=== PATIENT | male | born 1955 | race Caucasian/White ===

== ENCOUNTER 2016-11-11 09:15 | Emergency (ER) | payer MEDICARE ==
[~2016-11-11] VITALS: Ht 182.9 cm; Wt 111.2 kg
[~2016-11-11 09:15] MED LIST: ADULT LOW DOSE81 M1 PO; BP MED; CENTRUM SILVER1 EACH PO; CIPRO500 MG PO; FIBER CHOICE1 TABLET PO; LISINOPRIL20 MG PO; XALATAN2.5 ML BOTH EYES
[2016-11-11 10:03] LABS: HEMATOCRIT 34.4 % (38.0-50.0); MCH 32.2 PG (29.0-34.0); MCHC 34.6 G/DL (30.0-36.0); MCV 93.2 FL (86-99); MEAN PLAT.VOLUME 10.1 uM^3 (9.0-12.4); PLATELET COUNT 274 K/uL (156-360); RBC DIS.WIDTH-CV 13.2 % (11.8-14.6); RBC DIS.WIDTH-SD 44.6 % (39-53); RED BLOOD COUNT 3.69 M/uL (4.00-5.50); WHITE BLOOD COUNT 7.3 K/uL (4.1-10.2)
[2016-11-11 10:50] LABS: CHLORIDE 106 mEq/L (99-109); POTASSIUM 4.2 mEq/L (3.7-5.4); SODIUM 139 mEq/L (136-147)
[2016-11-11 10:51] LABS: GLUCOSE 101 mg/dL (70-99)
[2016-11-11 10:53] LABS: ANION GAP 10 MEQ/L (2-14)
[2016-11-11 10:55] LABS: GFR ESTIMATE (CALCULATED) > 59 mL/min/
[2016-11-11 10:56] LABS: UREA NITROGEN (BUN) 12 mg/dL (9-23)
[2016-11-11 10:58] LABS: URIC ACID 7.3 mg/dL (3.1-9.2)
[2016-11-11] MEDS ORDERED: PEPCID20 MG PO (11:57)
[2016-11-11] MEDS ORDERED: BENADRYL50 MG PO (11:57)
[2016-11-11] MEDS ORDERED: COLCHICINE0.6 M1 PO (11:57)
[2016-11-11] MEDS ORDERED: PREDNISONE20 MG PO (11:57)
[2016-11-11 15:55] VITALS: BP 137/97
== END 2016-11-11 16:06 | disposition home or self-care (01) ==
LOC: EME 09:15
PROVIDERS: Nurse Practitioner Family
DX: T78.3XXA Angioneurotic edema, initial encounter (principal); M10.9 Gout, unspecified; I10 Essential (primary) hypertension; Z90.49 Acquired absence of other specified parts of digestive tract
CPT/HCPCS: 80048; 80053; 84550; 85027; 99281; 99285; J1200; J2930; J7030; S0028

== ENCOUNTER 2016-11-20 23:49 | Emergency (ER) | payer MEDICARE ==
[~2016-11-20] VITALS: Ht 182.9 cm; Wt 113.8 kg
[~2016-11-20 23:49] MED LIST changes: +BENADRYL50 MG PO; +COLCHICINE0.6 M1 PO; +PEPCID20 MG PO; +PREDNISONE20 MG PO
[2016-11-21 00:24] LABS: ADD MIUA? YES; BILIRUBIN NEGATIVE; BLOOD MODERATE; COLOR YELLOW ((YELLOW)); GLUCOSE (STRIP) NEGATIVE; KETONES NEGATIVE; LEUKOCYTES SMALL; NITRITE NEGATIVE; PROTEIN (STRIP) 100; SPECIFIC GRAVITY 1.012 (1.000-1.030); UROBILINOGEN 0.2 MG/DL (0.2-1.0)
[2016-11-21 00:27] LABS: BACTERIA NONE SEEN /HPF; EPITHELIAL CELLS NONE SEEN /HPF; MUCUS NONE SEEN /LPF; RED BLOOD CELLS TNTC /HPF (0-5); UCUL ADDED? YES; WHITE BLOOD CELLS 40-50 /HPF (0-5)
[2016-11-21] MEDS ORDERED: CIPRO500 MG PO (00:51)
[2016-11-21 01:38] VITALS: BP 120/65
== END 2016-11-21 01:39 | disposition home or self-care (01) ==
LOC: EME 23:49
PROVIDERS: Emergency Medicine
DX: N39.0 Urinary tract infection, site not specified (principal); R50.9 Fever, unspecified; I10 Essential (primary) hypertension
CPT/HCPCS: 81003; 87077; 87086; 87186; 99281; 99284

== ENCOUNTER 2016-12-10 14:05 | Emergency (ER) | payer MEDICARE ==
[~2016-12-10] VITALS: Ht 182.9 cm; Wt 113.9 kg
[2016-12-10 14:50] LABS: ADD MIUA? YES; BILIRUBIN NEGATIVE; BLOOD MODERATE; COLOR AMBER ((YELLOW)); GLUCOSE (STRIP) NEGATIVE; KETONES NEGATIVE; LEUKOCYTES LARGE; NITRITE NEGATIVE; PROTEIN (STRIP) 100; SPECIFIC GRAVITY 1.017 (1.000-1.030); UROBILINOGEN 0.2 MG/DL (0.2-1.0)
[2016-12-10 15:11] LABS: BACTERIA 3+ /HPF; EPITHELIAL CELLS NONE SEEN /HPF; MUCUS 4+ /LPF; RED BLOOD CELLS TNTC /HPF (0-5); UCUL ADDED? YES; WHITE BLOOD CELLS TNTC /HPF (0-5); WHITE BLOOD CELLS CLUMP FEW /HPF (0-5)
[2016-12-10 15:17] LABS: HEMATOCRIT 32.2 % (38.0-50.0); MCH 31.5 PG (29.0-34.0); MCHC 34.2 G/DL (30.0-36.0); MCV 92.3 FL (86-99); MEAN PLAT.VOLUME 9.6 uM^3 (9.0-12.4); PLATELET COUNT 286 K/uL (156-360); RBC DIS.WIDTH-CV 13.6 % (11.8-14.6); RBC DIS.WIDTH-SD 46.5 % (39-53); RED BLOOD COUNT 3.49 M/uL (4.00-5.50)
[2016-12-10 15:37] LABS: CHLORIDE 102 mEq/L (99-109); SODIUM 137 mEq/L (136-147)
[2016-12-10 15:38] LABS: GLUCOSE 98 mg/dL (70-99)
[2016-12-10 15:40] LABS: ANION GAP 10 MEQ/L (2-14)
[2016-12-10 15:42] LABS: GFR ESTIMATE (CALCULATED) > 59 mL/min/
[2016-12-10 15:43] LABS: UREA NITROGEN (BUN) 16 mg/dL (9-23)
[2016-12-10] MEDS ORDERED: LEVAQUIN250 MG PO (16:49)
[2016-12-10 17:06] VITALS: BP 126/80
== END 2016-12-10 17:07 | disposition home or self-care (01) ==
LOC: EME 14:05
DX: N39.0 Urinary tract infection, site not specified (principal); B96.20 Unspecified Escherichia coli [E. coli] as the cause of diseases classified elsewhere; I10 Essential (primary) hypertension; M10.9 Gout, unspecified; Z87.440 Personal history of urinary (tract) infections; Z90.49 Acquired absence of other specified parts of digestive tract; Z98.890 Other specified postprocedural states
CPT/HCPCS: 80048; 81003; 85027; 87077; 87086; 87186; 99281; 99284

== ENCOUNTER 2017-09-08 16:13 | Emergency (ER) | payer MEDICARE ==
[~2017-09-08] VITALS: Ht 182.9 cm; Wt 121.7 kg
[~2017-09-08 16:13] MED LIST changes: +LEVAQUIN250 MG PO
[2017-09-08 17:23] LABS: HEMATOCRIT 38.3 % (38.0-50.0); HEMOGLOBIN 13.9 G/DL (12.5-16.6); MCH 32.6 PG (29.0-34.0); MCHC 36.3 G/DL (30.0-36.0); MCV 89.9 FL (86-99); PLATELET COUNT 153 K/uL (156-360); RBC DIS.WIDTH-CV 13.6 % (11.8-14.6); RBC DIS.WIDTH-SD 44.7 % (39-53); RED BLOOD COUNT 4.26 M/uL (4.00-5.50); WHITE BLOOD COUNT 7.5 K/uL (4.1-10.2)
[2017-09-08 17:38] LABS: ALBUMIN 4.1 g/dL (3.2-4.8); CHLORIDE 107 mEq/L (99-109); POTASSIUM 4.3 mEq/L (3.7-5.4); SODIUM 140 mEq/L (136-147)
[2017-09-08 17:41] LABS: GLUCOSE 96 mg/dL (70-99); TOTAL PROTEIN 7.2 g/dL (6.4-8.3)
[2017-09-08 17:42] LABS: TOTAL BILIRUBIN 0.3 mg/dL (0.0-1.0)
[2017-09-08 17:44] LABS: ALKALINE PHOSPHATASE 76 IU/L (3-129); GFR ESTIMATE (CALCULATED) > 59 mL/min/ (58.99-99999)
[2017-09-08 17:45] LABS: UREA NITROGEN (BUN) 16 mg/dL (9-23)
[2017-09-08 17:46] LABS: AST (GOT) 35 IU/L (2-34)
[2017-09-08 17:47] LABS: ALT (GPT) 36 IU/L (3-49)
[2017-09-08 17:48] LABS: LIPASE 12 U/L (1.0-51.0)
[2017-09-08 17:53] LABS: APPEARANCE CLEAR ((CLEAR)); BILIRUBIN NEGATIVE; BLOOD MODERATE; COLOR YELLOW ((YELLOW)); GLUCOSE (STRIP) NEGATIVE; KETONES NEGATIVE; LEUKOCYTES NEGATIVE; NITRITE NEGATIVE; PROTEIN (STRIP) 100; SPECIFIC GRAVITY 1.019 (1.000-1.030); UROBILINOGEN 0.2 MG/DL (0.2-1.0)
[2017-09-08 17:54] LABS: TROP-I INTERPRETATION NEGATIVE; TROPONIN-I < 0.01 ng/mL (0.0-0.30)
[2017-09-08 17:59] LABS: BACTERIA RARE /HPF; EPITHELIAL CELLS NONE SEEN /HPF; MUCUS TRACE /LPF; RED BLOOD CELLS 30-40 /HPF (0-5); UCUL ADDED? NO; WHITE BLOOD CELLS 0-5 /HPF (0-5)
[2017-09-08] MEDS ORDERED: ZANTAC150 MG PO (19:54)
[2017-09-08 20:47] LABS: TROP-I INTERPRETATION NEGATIVE; TROPONIN-I < 0.01 ng/mL (0.0-0.30)
[2017-09-08 20:49] VITALS: BP 128/78
== END 2017-09-08 20:55 | disposition home or self-care (01) ==
LOC: EME 16:13
PROVIDERS: Nurse Practitioner Family
DX: K57.90 Diverticulosis of intestine, part unspecified, without perforation or abscess without bleeding (principal); N20.0 Calculus of kidney; I10 Essential (primary) hypertension; Z90.49 Acquired absence of other specified parts of digestive tract; Z88.8 Allergy status to other drugs, medicaments and biological substances
CPT/HCPCS: 71046; 74177; 80053; 81003; 83690; 84484; 85027; 93005; 99281; 99284